=== PATIENT | female | born 1995 | race Two or more races ===

== ENCOUNTER 2023-08-10 20:23 | Emergency (ER) | payer MEDICAID, OTHER ==
[~2023-08-10] VITALS: Ht 154.9 cm; Wt 63.0 kg
[2023-08-10 20:35] VITALS: PULSE 83; RESP 14; O2SAT 100
[2023-08-10 21:42] LABS: Basophils # (auto) 0 10 ^3/uL (0-0.2); Basophils % (auto) 0.7 % (0.0-2.0); Eosinophils # (auto) 0.1 10 ^3/uL (0-0.8); Eosinophils % (auto) 2.2 % (0.0-7.0); Hematocrit 39.8 % (36.0-46.0); Hemoglobin 13.3 g/dL (12.2-16.2); Lymphocytes # (auto) 3.2 10 ^3/uL (0.4-5.4); Lymphocytes % (auto) 49.2 % (10.0-50.0); Mean Corpuscular Hemoglobin 31.2 pg (28.0-32.0); Mean Corpuscular Hgb Conc. 33.5 g/dL (32.0-36.0); Mean Corpuscular Volume 93.2 fL (80.0-100.0); Monocytes # (auto) 0.4 10 ^3/uL (0-1.3); Monocytes % (auto) 6.3 % (0.0-12.0); Neutrophils # (auto) 2.7 10 ^3/uL (1.6-8.6); Neutrophils % (auto) 41.6 % (37.0-80.0); Nucleated Red Blood Cells % 0.1 %; Red Blood Cells 4.28 10^6/uL (4.0-5.20); Red Cell Distribution Width 13.9 % (11.8-14.3); White Blood Cell 6.6 10^3/uL (4.4-10.8)
[2023-08-10 21:47] LABS: Urine Bacteria NONE SEEN /hpf (None Seen); Urine Blood Negative /uL (Negative); Urine Clarity Clear (Clear); Urine Color Colorless (Yellow); Urine Mucus FEW (None Seen); Urine Protein, UAD Negative (Negative); Urine Specific Gravity 1.011 (1.001-1.035); Urine Urobilinogen Normal (Negative); Urine WBC 1 /hpf (0 - 5); Urine pH 5.5 (5.0-8.0)
[2023-08-10 21:56] LABS: Amphetamine Screen, Urine Neg (NEGATIVE); Barbiturate Scree,Urine Neg (NEGATIVE); Benzodiazephine Screen, Urine Pos (NEGATIVE); Cannabinoid Screen, Urine Neg (NEGATIVE); Cocaine Screen, Urine Neg (NEGATIVE); Opiate Scree,Urine Pos (NEGATIVE); Phencyclidine Screen, Urine Neg (NEGATIVE)
[2023-08-10 21:57] LABS: Alanine Aminotransferase 17 U/L (7-40); Albumin 4.4 g/dL (3.2-4.8); Alkaline Phosphatase 72 U/L (46-116); Anion Gap 8 (5-15); Aspartate Aminotransferase 11 U/L (13-40); BUN/Creatinine Ratio 17.7 (10.0-20.0); Blood Alcohol 210.3 mg/dL (<10); Blood Urea Nitrogen 11 mg/dL (9-23); Calcium 8.8 mg/dL (8.5-10.1); Carbon Dioxide 24 mmol/L (20-30); Chloride 111 mmol/L (98-107); Glucose 86 mg/dL (74-106); Potassium 3.7 mmol/L (3.5-5.1); Sodium 143 mmol/L (136-145)
[2023-08-10 21:58] LABS: Bilirubin, Total 0.3 mg/dL (0.2-1.0); Total Protein 7.2 g/dL (5.7-8.2)
[2023-08-10 21:59] LABS: Salicylate < 3.0 mg/dL (2.8-20.0)
[2023-08-10 22:21] LABS: Magnesium 2.2 mg/dL (1.6-2.6)
[2023-08-10] MEDS ORDERED: SODIUM CHLORIDE 0.9% 1,000 ML IV ONE (23:30)
[2023-08-11 05:39] LABS: Alanine Aminotransferase 14 U/L (7-40); Albumin 3.9 g/dL (3.2-4.8); Alkaline Phosphatase 64 U/L (46-116); Anion Gap 10 (5-15); Aspartate Aminotransferase 11 U/L (13-40); BUN/Creatinine Ratio 17.2 (10.0-20.0); Bilirubin, Total 0.4 mg/dL (0.2-1.0); Blood Urea Nitrogen 11 mg/dL (9-23); Calcium 8.4 mg/dL (8.5-10.1); Carbon Dioxide 22 mmol/L (20-30); Chloride 111 mmol/L (98-107); Glucose 67 mg/dL (74-106); Sodium 143 mmol/L (136-145); Total Protein 6.5 g/dL (5.7-8.2)
[2023-08-11 19:40] VITALS: PULSE 68; RESP 20; O2SAT 96
[2023-08-12] MEDS: LORazepam 0.5 MG TAB PO PRN ×2 (00:28→10:46)
[2023-08-12 08:00] VITALS: PULSE 62; RESP 20; O2SAT 98
[2023-08-12] MEDS ORDERED: ONDANSETRON ODT 4 MG TAB PO ONE (14:00)
[2023-08-12] MEDS ORDERED: ALPRAZolam 0.5 MG TAB PO ONE (14:00)
[2023-08-12 14:50] VITALS: BP 139/87; PULSE 93; RESP 17; TEMP 98.4; O2SAT 97
== END 2023-08-12 15:16 | disposition short-term general hospital (02) ==
LOC: ER 20:23
DX: T14.91XA Suicide attempt, initial encounter (principal); T42.4X2A Poisoning by benzodiazepines, intentional self-harm, initial encounter; T40.2X2A Poisoning by other opioids, intentional self-harm, initial encounter; F10.129 Alcohol abuse with intoxication, unspecified; Z79.899 Other long term (current) drug therapy; Y92.89 Other specified places as the place of occurrence of the external cause; Y93.89 Activity, other specified; Y99.8 Other external cause status; Y90.0 Blood alcohol level of less than 20 mg/100 ml
CPT/HCPCS: 36415; 51701; 80053; 80307; 80320; 80329; 81001; 81025; 83735; 85025; 93005; 96360; 99285; J7030

== ENCOUNTER 2024-07-05 20:37 | Emergency (ER) | payer MEDICAID ==
[~2024-07-05] VITALS: Ht 154.9 cm; Wt 62.8 kg
[2024-07-05 21:15] VITALS: BP 143/93
[2024-07-05 21:41] LABS: Urine Amorphous Crystal FEW /hpf (None Seen); Urine Bacteria FEW /hpf (None Seen); Urine Blood 1+ /uL (Negative); Urine Clarity Turbid (Clear); Urine Color Light-Yellow (Yellow); Urine Mucus FEW (None Seen); Urine Protein, UAD Negative (Negative); Urine Specific Gravity 1.019 (1.001-1.035); Urine Urobilinogen Normal (Negative); Urine WBC 16 /hpf (0 - 5); Urine pH 5.5 (5.0-9.0)
[2024-07-05] MEDS: LORazepam 0.5 MG TAB PO ONE (23:21)
[2024-07-05] MEDS ORDERED: NITR-87 PO (23:31)
[2024-07-05] MEDS: diphenhdrAMINE HCL 25 MG CAP PO ONE (23:39)
[2024-07-05 23:45] VITALS: PULSE 104; RESP 18; O2SAT 96
== END 2024-07-05 23:46 | disposition home or self-care (01) ==
LOC: ER 20:37
DX: F19.939 Other psychoactive substance use, unspecified with withdrawal, unspecified (principal); N39.0 Urinary tract infection, site not specified; Z88.0 Allergy status to penicillin
CPT/HCPCS: 81001

== ENCOUNTER 2024-07-19 19:47 | Emergency (ER) | payer MEDICAID ==
[~2024-07-19] VITALS: Ht 165.1 cm; Wt 75.0 kg
[~2024-07-19 19:47] MED LIST: NITR-87 PO
[2024-07-19 21:22] LABS: Basophils # (auto) 0 10 ^3/uL (0-0.2); Basophils % (auto) 0.6 % (0.0-2.0); Eosinophils # (auto) 0.2 10 ^3/uL (0-0.8); Eosinophils % (auto) 2.9 % (0.0-7.0); Hematocrit 39.4 % (36.0-46.0); Hemoglobin 13.7 g/dL (12.2-16.2); Lymphocytes # (auto) 2.6 10 ^3/uL (0.4-5.4); Lymphocytes % (auto) 40.3 % (10.0-50.0); Mean Corpuscular Hemoglobin 32.1 pg (28.0-32.0); Mean Corpuscular Hgb Conc. 34.7 g/dL (32.0-36.0); Mean Corpuscular Volume 92.3 fL (80.0-100.0); Monocytes # (auto) 0.5 10 ^3/uL (0-1.3); Monocytes % (auto) 7.1 % (0.0-12.0); Neutrophils # (auto) 3.2 10 ^3/uL (1.6-8.6); Neutrophils % (auto) 49.1 % (37.0-80.0); Platelet Count (auto) 277 10^3/uL (140-450); Red Blood Cells 4.27 10^6/uL (4.0-5.20); Red Cell Distribution Width 13.8 % (11.8-14.3); White Blood Cell 6.5 10^3/uL (4.4-10.8)
[2024-07-19 21:38] LABS: Alanine Aminotransferase 59 U/L (7-40); Albumin 4.1 g/dL (3.2-4.8); Alkaline Phosphatase 79 U/L (46-116); Anion Gap 10 (5-15); Aspartate Aminotransferase 78 U/L (13-40); BUN/Creatinine Ratio 14.3 (10.0-20.0); Bilirubin, Total 0.5 mg/dL (0.2-1.0); Blood Urea Nitrogen 11 mg/dL (9-23); Calcium 8.7 mg/dL (8.7-10.4); Carbon Dioxide 23 mmol/L (20-30); Chloride 108 mmol/L (98-107); Glucose 111 mg/dL (74-106); Potassium 3.9 mmol/L (3.5-5.1); Sodium 141 mmol/L (136-145); Total Protein 6.9 g/dL (5.7-8.2)
[2024-07-19 21:39] LABS: Acetaminophen < 2.0 UG/ML (10.0-20.0)
[2024-07-19 21:41] LABS: Salicylate < 3.0 mg/dL (2.8-20.0)
[2024-07-20] MEDS: SODIUM CHLORIDE 0.9% 3,000 ML IV ONE (02:30)
[2024-07-20 07:03] LABS: Urine Bacteria None Seen /hpf (None Seen)
[2024-07-20 07:15] LABS: Urine Blood 2+ /uL (Negative); Urine Clarity Turbid (Clear); Urine Color Yellow (Yellow); Urine Mucus FEW (None Seen); Urine Protein, UAD TRACE (Negative); Urine Specific Gravity 1.024 (1.001-1.035); Urine Urobilinogen Normal (Negative); Urine WBC 17 /hpf (0 - 5)
[2024-07-20 07:30] LABS: Amphetamine Screen, Urine Neg (NEGATIVE); Barbiturate Scree,Urine Neg (NEGATIVE)
[2024-07-20 07:31] LABS: Benzodiazephine Screen, Urine Pos (NEGATIVE); Cannabinoid Screen, Urine Neg (NEGATIVE); Cocaine Screen, Urine Neg (NEGATIVE); Opiate Scree,Urine Neg (NEGATIVE); Phencyclidine Screen, Urine Neg (NEGATIVE)
[2024-07-20 08:15] VITALS: RESP 23; O2SAT 97
[2024-07-20 16:07] VITALS: PULSE 89; RESP 18; O2SAT 99
[2024-07-20 19:46] VITALS: PULSE 82; RESP 16; O2SAT 99
[2024-07-21 07:30] VITALS: PULSE 91; RESP 16; O2SAT 100
[2024-07-21 12:22] VITALS: BP 137/86; PULSE 85; RESP 14; TEMP 97.7; O2SAT 96
== END 2024-07-21 12:19 | disposition short-term general hospital (02) ==
LOC: ER 19:47 → EDBD 19:47 → ER 07-21 12:19
DX: R45.851 Suicidal ideations (principal); F41.9 Anxiety disorder, unspecified; R10.2 Pelvic and perineal pain; F32.A Depression, unspecified; Z79.899 Other long term (current) drug therapy; Z88.0 Allergy status to penicillin; Y90.8 Blood alcohol level of 240 mg/100 ml or more
CPT/HCPCS: 36415; 80053; 80307; 80320; 80329; 81001; 84702; 85025; 93005; 96360; 96361; 99285; J7030

== ENCOUNTER 2025-04-14 09:18 | Emergency (ER) | payer MEDICAID ==
[~2025-04-14] VITALS: Ht 154.9 cm; Wt 66.8 kg
[2025-04-14 09:56] VITALS: BP 90/65; PULSE 92; RESP 16; TEMP 97.5; O2SAT 95
[2025-04-14] MEDS ORDERED: SODIUM CHLORIDE 0.9% 1,000 ML IV ONE (10:30)
[2025-04-14 10:40] LABS: Basophils # (auto) 0.1 10 ^3/uL (0-0.2); Basophils % (auto) 0.5 % (0.0-2.0); Eosinophils # (auto) 0 10 ^3/uL (0-0.8); Eosinophils % (auto) 0.3 % (0.0-7.0); Hematocrit 37.8 % (36.0-46.0); Hemoglobin 12.9 g/dL (12.2-16.2); Lymphocytes # (auto) 1.5 10 ^3/uL (0.4-5.4); Lymphocytes % (auto) 10.5 % (10.0-50.0); Mean Corpuscular Hemoglobin 29.5 pg (28.0-32.0); Mean Corpuscular Hgb Conc. 34.1 g/dL (32.0-36.0); Mean Corpuscular Volume 86.6 fL (80.0-100.0); Monocytes # (auto) 1.1 10 ^3/uL (0-1.3); Monocytes % (auto) 7.6 % (0.0-12.0); Neutrophils # (auto) 11.7 10 ^3/uL (1.6-8.6); Neutrophils % (auto) 81.1 % (37.0-80.0); Platelet Count (auto) 244 10^3/uL (140-450); Red Blood Cells 4.37 10^6/uL (4.0-5.20); Red Cell Distribution Width 13.3 % (11.8-14.3); White Blood Cell 14.4 10^3/uL (4.4-10.8)
--- NOTE | 2025-04-14 10:41 | ED.PDOC ---
Eye-HPI HPI Comments This is a 29 year old female presenting to the ED with chief complaint of sore throat and allergic reaction. Patient reports that she has been experiencing a sore throat for a few days now, visiting an urgent care yesterday where she was given an injection of an antibiotic. Patient relays that since then, she has been experiencing excess fatigue and feeling "loopy" along with her throat still being sore. Patient state she is unsure which antibiotic she was given. Patient denies any N/V, rash, throat swelling, pruritus, dizziness, headache, or SOB. Chief Complaint: Sore Throat Time Seen by MD: 10:37 Reviewed Notes: Nurses Notes, Medications, Allergies Allergies: Coded Allergies: Penicillins (Verified Allergy, Unknown, 08/10/23) Home Meds Active Scripts Diphenhydramine Hcl (Benadryl Allergy) 25 Mg Cap, 1 CAP PO Q6HP PRN, #30 CAP 1 Refill Prov:BETSY BARRAZA MD 04/14/25 Prednisone (Prednisone) 20 Mg Tab, 20 MG PO DAILY for 5 Days, #5 TAB Prov:BETSY BARRAZA MD 04/14/25 Nitrofurantoin Monohydrate Mac (Macrobid) 100 Mg Cap, 100 MG PO BID, #14 CAP Prov:SONNY SINCLAIR MD 07/05/24 Information Source: Patient Mode of Arrival: Ambulatory Timing: Days Duration: Since onset Prehospital treatment: None Associated signs and symptoms: Sore Throat Past Medical History PAST MEDICAL HISTORY: Anxiety, Depression Surgical History: Denies all surgeries [employer]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 [employer]ATE [employer] PROGRAM COORDINATOR Hx Family History Family History: Reviewed,noncontributory to illness Social History Smoker: Non-Smoker Alcohol: Occasionally Drugs: Denies Drug Use Lives In: Home Constitutional: reports: malaise; denies: chills, diaphoresis, fatigue, fever, sweats, weakness, others EENTM: reports: throat pain; denies: blurred vision, double vision, ear bleeding, ear discharge, ear drainage, ear pain, ear ringing, eye pain, eye redness, hearing loss, mouth pain, mouth swelling, nasal discharge, nose bleeding, nose congestion, nose pain, photophobia, tearing, throat swelling, voice changes, others Respiratory: denies: cough, hemoptysis, orthopnea, SOB at rest, shortness of breath, SOB with excertion, stridor, wheezing, others Cardiovascular: denies: chest pain, dizzy spells, diaphoresis, Dyspnea on exertion, edema, irregular heart beat, left arm pain, lightheadedness, palp itations, PND, syncope, others Gastrointestinal: denies: abdomen distended, abdominal pain, blood streaked bowels, constipated, diarrhea, dysphagia, difficulty swallowing, hematemesis, melena, nausea, poor appetite, poor fluid intake, rectal bleeding, rectal pain, vomiting, others Genitourinary: denies: abnormal vagina bleeding, burning, dyspareunia, dysuria, flank pain, frequency, hematuria, incontinence, pain, , vagina discharge, urgency, others Neurological: denies: dizziness, fainting, headache, left sided numbness, left sided weakness, numbness, paresthesia, pre-existing deficit, right sided numbness, right sided weakness, seizure, speech problems, tingling, tremors, weakness, others Musculoskeletal: denies: back pain, gout, joint pain, joint swelling, muscle pain, muscle stiffness, neck pain, others Integumetry: denies: bruises, change in color, change in hair/nails, dryness, laceration, lesions, lumps, rash, wounds, others Allergic/Immunocompromised: denies: Difficulty Healing, Frequent Infections, Hives, Itching, others Hematologic/Lymphatic: denies: anemia, blood clots, easy bleeding, easy br uising, swollen glands, others Endocrine: denies: excessive hunger, excessive sweating, excessive thirst, excessive urination, flushing, intolerance to cold, intolerance to heat, unexplained weight gain, unexplained weight loss, others Psychiatric: denies: anxiety, bipolar disorder, depression, hopeless, panic disorder, schizophrenia, sleepless, suicidal, others All Other Systems: Reviewed and Negative Physical Exam General Appearance: No Apparent Distress, Normal HEENT: Normal ENT Inspection, Pharyngeal Erythema, TMs Normal, Tonsillar Exudate (Bilateral tonsil white exudates, airway patent) Neck: Full Range of Motion, Non-Tender, Normal, Normal Inspection Respiratory: Chest Non-Tender, Lungs Clear, No Accessory Muscle Use, No Respiratory Distress, Normal Breath Sounds Cardiovascular: No Edema, No JVD, No Murmur, No Gallop, Normal Peripheral Pulses, Regular Rate/Rhythm Breast Exam: Deferred Gastrointestinal: No Organomegaly, Non Tender, No Pulsatile Mass, Normal Bowel Sounds, Soft Genitalia: Deferred Pelvic: Deferred Rectal: Deferred Extremities: No calf tenderness, Normal capillary refill, Normal inspection, Normal range of motion, Non-tender, No pedal edema Musculoskeletal : Apperance: Normal Neurologic: Alert, forest engineer II-XII nml as Tested, No Motor Deficits, Normal Affect, Normal Mood, No Sensory Deficits Cerebellar Function: Normal Reflexes: Normal Skin: Dry, Normal Color, Warm Lymphatic: No Adenopathy Was a procedure done? Was a procedure done?: No EENT DIFF Eye: Other Ear: N/A Nose: N/A Mouth: Esophageal candidiasis, Herpangina, Herpes Simplex, Thrush Sore Throat: Epiglottitis, Hand Foot Mouth Disease, Herpangina, Herpetic Stomatitis, Mononeucleosis, Garcia's Angina, Peritonsillar Abscess, Peritonsillar Cellulitis, Pharyngitis, Streptococcal, Viral Pharyngitis, URI Other Differential Diagnosis allergy, anxiety, anaphylactic reaction X-Ray, Labs, Meds, VS Vital Signs Date Time Temp Pulse Resp B/P (MAP) Pulse Ox O2 Delivery O2 Flow Rate FiO2 04/14/25 09:56 97.5 92 16 90/65 (73) 95 97.5 Lab Test 04/14/25 10:26 Range/Units White Blood Count 14.4 H 4.4-10.8 10^3/uL Red Blood Count 4.37 4.0-5.20 10^6/uL Hemoglobin 12.9 12.2-16.2 g/dL Hematocrit 37.8 36.0-46.0 % Mean Corpuscular Volume 86.6 80.0-100.0 fL Mean Corpuscular Hemoglobin 29.5 28.0-32.0 pg Mean Corpuscular Hemoglobin Concent 34.1 32.0-36.0 g/dL Red Cell Distribution Width 13.3 11.8-14.3 % Platelet Count 244 140-450 10^3/uL Mean Platelet Volume 6.8 L 6.9-10.8 fL Neutrophils (%) (Auto) 81.1 H 37.0-80.0 % Lymphocytes (%) (Auto) 10.5 10.0-50.0 % Monocytes (%) (Auto) 7.6 0.0-12.0 % Eosinophils (%) (Auto) 0.3 0.0-7.0 % Basophils (%) (Auto) 0.5 0.0-2.0 % Neutrophils # (Auto) 11.7 H 1.6-8.6 10 ^3/uL Lymphocytes # (Auto) 1.5 0.4-5.4 10 ^3/uL Monocytes # (Auto) 1.1 0-1.3 10 ^3/uL Eosinophils # (Auto) 0 0-0.8 10 ^3/uL Basophils # (Auto) 0.1 0-0.2 10 ^3/uL Nucleated Red Blood Cells 0.0 % Sodium Level 140 136-145 mmol/L Potassium Level 3.5 3.5-5.1 mmol/L Chloride Level 107 98-107 mmol/L Carbon Dioxide Level 23 20-31 mmol/L Anion Gap 10 5-15 Blood Urea Nitrogen 9 9-23 mg/dL Creatinine 0.85 0.550-1.02 mg/dL Glomerular Filtration Rate Calc 94 >90 mL/min BUN/Creatinine Ratio 10.6 10.0-20.0 Serum Glucose 113 H 74-106 mg/dL Calcium Level 9.7 8.7-10.4 mg/dL Time of 1ST Reevaluation: 11:37 Reevaluation 1ST: Unchanged Time of 2ND Reevaluation: 13:00 Reevaluation 2ND: Resolved Patient Education/Counseling: Diagnosis, Treatment, Prognosis, Need For Follow Up Family Education/Counseling: No Family Present Additional Information Previous visits reviewed: 07/19/24 for SI The following tests were ordered, and results were reviewed by me: CBC, BMP, Preg urine Additional Information was gathered from interviewing the following independent historians: None I reviewed and agreed with the following test results read by other providers: None I discussed treatment and results with medical personnel and: patient Comprehensive systems review obtained and negative except for what is stated in the HPI. SEPSIS Sepsis Screen Date sepsis recognized/suspect: Apr 14, 2025 Time Sepsis recognized/suspect: 938 Recent Procedure: No On Antibiotic Therapy: Yes Respiratory Rate >20: No Heart Rate >90: No Temp<36 C (96.8 F) or >38.3 C: No SBP <90 or MAP <65 mmHG: No New Acute Mental Status Change: No Is the patient on CPAP, BIPAP,: No Vital Signs Date Time Temp Pulse Resp B/P (MAP) Pulse Ox O2 Delivery O2 Flow Rate FiO2 04/14/25 09:56 97.5 92 16 90/65 (73) 95 97.5 Laboratory Tests Test 04/14/25 10:26 White Blood Count 14.4 10^3/uL (4.4-10.8) H Departure 1 Departure Time of Disposition: 18:11 Impression: Primary Impression: Allergic reaction Qualified Codes: T78.40XA - Allergy, unspecified, initial encounter Disposition: HOME / SELF CARE / HOMELESS Condition: Good e-Prescriptions Diphenhydramine Hcl (Benadryl Allergy) 25 Mg Cap 1 CAP PO Q6HP PRN, #30 CAP 1 Refill Prov: BETSY BARRAZA MD 04/14/25 Prednisone (Prednisone) 20 Mg Tab 20 MG PO DAILY for 5 Days, #5 TAB Prov: BETSY BARRAZA MD 04/14/25 Discharged With: Self Critical Care Note Critical Care Time?: No Stability Stability form required: No Heart Score Heart Score: Heart Score Response (Comments) Value History N/A 0 EKG N/A 0 Age N/A 0 Risk Factors N/A 0 Troponin N/A 0 Total 0 I personally scribed for BETSY BARRAZA MD ([email or web address]) on 04/14/25 at 10:41. Electronically submitted by Yaron Rutledge ([email or web address]). BETSY BARRAZA MD Apr 14, 2025 10:41
[2025-04-14 10:48] LABS: Chloride 107 mmol/L (98-107); Potassium 3.5 mmol/L (3.5-5.1); Sodium 140 mmol/L (136-145)
[2025-04-14 10:49] LABS: Anion Gap 10 (5-15); Carbon Dioxide 23 mmol/L (20-31)
[2025-04-14 10:50] LABS: Calcium 9.7 mg/dL (8.7-10.4)
[2025-04-14 10:54] LABS: BUN/Creatinine Ratio 10.6 (10.0-20.0)
[2025-04-14 11:05] LABS: Blood Urea Nitrogen 9 mg/dL (9-23); Glucose 113 mg/dL (74-106)
[2025-04-14] MEDS ORDERED: PRED20TA2 PO (18:13)
[2025-04-14] MEDS ORDERED: DIPH25CA66 PO (18:13)
== END 2025-04-14 13:01 | disposition home or self-care (01) ==
LOC: ER 09:24
DX: T78.49XA Other allergy, initial encounter (principal); J02.9 Acute pharyngitis, unspecified; F41.9 Anxiety disorder, unspecified; F32.A Depression, unspecified; Z79.899 Other long term (current) drug therapy; Z88.0 Allergy status to penicillin; X58.XXXA Exposure to other specified factors, initial encounter
CPT/HCPCS: 36415; 80048; 85025